=== PATIENT | female | born 1945 | race Caucasian/White ===

== ENCOUNTER 2025-01-11 19:25 | Emergency (ER) | payer MEDICARE, OTHER, SELFPAY ==
[2025-01-11 19:35] VITALS: BP 171/100; PULSE 77; TEMP 36.6; O2SAT 99; BMI 26.3
--- NOTE | 2025-01-11 19:46 | XR_ITS ---
[place] [id number] Patient Name: RAMESH HO MRN: [id number] date: 1945 Sex: F Assigned Patient Location: ER Current Patient Location: Accession/Order Number: [id number] Exam Date: 01/11/2025 20:02 Report Date: 01/11/2025 21:08 At the request of: ERASMO TUCKER MD Procedure: XR foot RT min 3V History: Right foot and left knee injury. 3 views right ankle. Adequate alignment without acute displaced fracture. Mild soft tissue swelling. 3 views right foot. Transverse fracture base of the fifth metatarsal. No dislocation. Soft tissue swelling. 3 views left knee. Moderate joint effusion. No acute displaced fracture. Moderate degeneration. Chondrocalcinosis. XR/XR foot RT min 3V IMPRESSION: Transverse fracture base of the fifth metatarsal. Nondisplaced fracture of the right ankle. Moderate left knee joint effusion without displaced fracture. Impression dictated by: Sacha Ryder M.D. 01/11/2025 9:08 PM Dictation Location: [facility]ENTER[facility] Electronically authenticated by: [id number] Y Date: 01/11/2025 21:08
--- NOTE | 2025-01-11 19:46 | XR_ITS ---
[place] [id number] Patient Name: RAMESH HO MRN: [id number] date: 1945 Sex: F Assigned Patient Location: ER Current Patient Location: Accession/Order Number: [id number] Exam Date: 01/11/2025 20:02 Report Date: 01/11/2025 21:08 At the request of: ERASMO TUCKER MD Procedure: XR foot RT min 3V History: Right foot and left knee injury. 3 views right ankle. Adequate alignment without acute displaced fracture. Mild soft tissue swelling. 3 views right foot. Transverse fracture base of the fifth metatarsal. No dislocation. Soft tissue swelling. 3 views left knee. Moderate joint effusion. No acute displaced fracture. Moderate degeneration. Chondrocalcinosis. XR/XR ankle RT min 3V IMPRESSION: Transverse fracture base of the fifth metatarsal. Nondisplaced fracture of the right ankle. Moderate left knee joint effusion without displaced fracture. Impression dictated by: Sacha Ryder M.D. 01/11/2025 9:08 PM Dictation Location: [facility] Electronically authenticated by: [id number] Y Date: 01/11/2025 21:08
--- NOTE | 2025-01-11 19:46 | XR_ITS ---
[place] [id number] Patient Name: RAMESH HO MRN: [id number] date: 1945 Sex: F Assigned Patient Location: ER Current Patient Location: Accession/Order Number: [id number] Exam Date: 01/11/2025 20:02 Report Date: 01/11/2025 21:08 At the request of: ERASMO TUCKER MD Procedure: XR foot RT min 3V History: Right foot and left knee injury. 3 views right ankle. Adequate alignment without acute displaced fracture. Mild soft tissue swelling. 3 views right foot. Transverse fracture base of the fifth metatarsal. No dislocation. Soft tissue swelling. 3 views left knee. Moderate joint effusion. No acute displaced fracture. Moderate degeneration. Chondrocalcinosis. XR/XR knee LT 3V IMPRESSION: Transverse fracture base of the fifth metatarsal. Nondisplaced fracture of the right ankle. Moderate left knee joint effusion without displaced fracture. Impression dictated by: Sacha Ryder M.D. 01/11/2025 9:08 PM Dictation Location: [facility]ITAL[facility] Electronically authenticated by: [id number] Y Date: 01/11/2025 21:08
--- NOTE | 2025-01-11 19:47 | ED.GENADUL1 ---
HPI HPI - General Adult General Chief complaint: Extremity Injury, Lower Stated complaint: HURT RIGHT FOOT AND LEFT KNEE Time Seen by Provider: 01/11/25 19:32 Source: patient Mode of arrival: walk-in Limitations: no limitations History of Present Illness HPI narrative: 79-year-old female presenting to the emergency department for pain in her left knee and her right ankle and foot. She fell and landed on her left knee and twisted her right foot and ankle. She did not hit her head or sustain other injuries. She went home and took a shower and it was still hurting so she came in to get checked. Is been more than 10 years since her last tetanus shot. She is able to ambulate with her walker. Related Data Home Medications ?Medication ?Instructions ?Recorded ?Confirmed albuterol sulfate 90 mcg/actuation 2 puff inhalation Q6H PRN 01/11/25 01/11/25 aerosol inhaler shortness of breath or wheezing alendronate 70 mg tablet 70 mg PO .weekly 01/11/25 01/11/25 ezetimibe 10 mg tablet 10 mg PO DAILY 01/11/25 01/11/25 irbesartan 300 1 tab PO DAILY 01/11/25 01/11/25 mg-hydrochlorothiazide 12.5 mg tablet levothyroxine 88 mcg tablet 88 mcg PO DAILY 01/11/25 01/11/25 metformin 1,000 mg tablet 1,000 mg PO BID 01/11/25 01/11/25 montelukast 10 mg tablet 10 mg PO BEDTIME 01/11/25 01/11/25 omeprazole 40 mg capsule,delayed 40 mg PO TID 01/11/25 01/11/25 release pravastatin 40 mg tablet 40 mg PO DAILY 01/11/25 01/11/25 sucralfate 1 gram tablet 1 g PO BID 01/11/25 01/11/25 Allergies Allergy/AdvReac Type Severity Reaction Status Date / Time doxycycline (From Vibramycin) AdvReac Mild Hives Verified 01/11/25 19:35 meperidine (From Demerol) AdvReac Mild Hallucinati Verified 01/11/25 19:35 ng Penicillins AdvReac Mild Hives Verified 01/11/25 19:35 Review of Systems ROS Narrative A ten point review of systems is negative except as noted above. PFSH PFSH Social History Little interest or pleasure in doing things: not at all Feeling down, depressed, or hopeless: not at all Exam Narrative Exam Narrative: Nurses note and vital signs reviewed and patient is not hypoxic. General:The patient appears in no apparent distress.Patient is resting comfortably on cart. Skin:Warm, dry, no pallor noted.There is no rash noted. Head:Normocephalic, atraumatic Eye: Normal conjunctiva, no drainage Ears, Nose, Mouth, and Throat: oral mucosa is moist. Nares patent. Cardiovascular:Regular Rate and Rhythm Respiratory:Patient is in no distress, no accessory muscle use Back:non-tender GI: Soft and nontender Musculoskeletal: She has an abrasion on the anterior left knee and she has some bruising on the lateral aspect of her right foot and the tenderness extends to the inferior part of the lateral malleolus. Skin intact in the foot and ankle. Neurological:A&O, normal speech Psychiatric:Cooperative Constitutional Vital Signs, click to edit/add: Last Vital Signs Temp 97.9 F 01/11/25 19:35 Pulse 77 01/11/25 19:35 Resp 18 01/11/25 19:35 BP 171/100 H 01/11/25 19:35 Pulse Ox 99 01/11/25 19:35 O2 Del Method Room Air 01/11/25 19:35 Course Vital Signs Vital signs: Vital Signs Temperature 97.9 F 01/11/25 19:35 Pulse Rate 77 01/11/25 19:35 Respiratory Rate 18 01/11/25 19:35 Blood Pressure 171/100 H 01/11/25 19:35 Pulse Oximetry 99 01/11/25 19:35 Oxygen Delivery Method Room Air 01/11/25 19:35 Temperature 97.9 F 01/11/25 19:35 Pulse Rate 77 01/11/25 19:35 Respiratory Rate 18 01/11/25 19:35 Blood Pressure 171/100 H 01/11/25 19:35 Pulse Oximetry 99 01/11/25 19:35 Oxygen Delivery Method Room Air 01/11/25 19:35 Medical Decision Making MDM Narrative Medical decision making narrative: Fifth metatarsal fracture is identified, nondisplaced. She is placed in a walking boot. Application check by me find the appropriate, she is neurovascular intact. I feel that walking boot would be the most appropriate modality for this patient. She also has a walker and was recommended ice rest and elevation. Treatment diagnosis and follow-up were discussed with the patient. Tetanus status was updated. Differential Diagnosis Differential Diagnosis: Fracture, sprain, need for tetanus immunization Imaging Data X-rays of left knee, right foot, right ankle: My impression: Fifth metatarsal fracture Discharge Plan Discharge Chief Complaint: Extremity Injury, Lower Clinical Impression: Closed nondisplaced fracture of fifth right metatarsal bone, Abrasion of knee, left Patient Disposition: Home, Self-Care Time of Disposition Decision: 20:30 Condition: Good Mode of Transportation: Private Vehicle Prescriptions / Home Meds: No Action albuterol sulfate 90 mcg/actuation HFA aerosol inhaler 2 puff INHALATION Q6H PRN (Reason: shortness of breath or wheezing) alendronate 70 mg tablet 70 mg PO .weekly ezetimibe 10 mg tablet 10 mg PO DAILY irbesartan-hydrochlorothiazide 300-12.5 mg tablet 1 tab PO DAILY levothyroxine 88 mcg tablet 88 mcg PO DAILY metformin 1,000 mg tablet 1,000 mg PO BID montelukast 10 mg tablet 10 mg PO BEDTIME pravastatin 40 mg tablet 40 mg PO DAILY sucralfate 1 gram tablet 1 g PO BID omeprazole 40 mg capsule,delayed release(DR/EC) 40 mg PO TID Print Language: Lithuanian Instructions: Foot Fracture in Adults (ED), Abrasion (ED) Referrals: Max Harley MD [Physician, Orthopedics] - 1 week
[2025-01-11] MEDS: DIPHTH,PERTUSS(ACELL),TET VAC 0.5 ML SYRINGE IM (20:30)
== END 2025-01-11 20:59 | disposition home or self-care (01) ==
PROVIDERS: Emergency Provider Emergency Medicine; PCP Family Medicine
DX: S92.354A Nondisplaced fracture of fifth metatarsal bone, right foot, initial encounter for closed fracture (principal); S80.212A Abrasion, left knee, initial encounter; X50.1XXA Overexertion from prolonged static or awkward postures, initial encounter; W19.XXXA Unspecified fall, initial encounter
CPT/HCPCS: 73562; 73610; 73630; 90471; 90715; 99283